=== PATIENT | female | born 1940 | race Caucasian/White ===

== ENCOUNTER 2016-12-10 20:23 | Emergency (ER) | payer OTHER, MEDICARE ==
[~2016-12-10] VITALS: Ht 152.4 cm; Wt 90.3 kg
[~2016-12-10 20:23] MED LIST: ACET325T96 PO; ALBU1AER9 INH; AMAN100C18 PO; BACL10TA PO; CALCTAB13 PO; CARB25TA12 PO; CARB50TA3 PO; CLOP1TAB15 PO; DOCU100C31 PO; EFFSR/75 PO; ESTR10TA PV; GABA1CAP5 PO; GUAI400T44 PO; IMD/2 PO; INSUINJ12 SQ; INSUINJ14 SQ; LATA0.009 OPB; MULT-190 PO; NITR0.4S UT; PANT40TA PO; POLY335019 PO; POLY99.02 OP; RASA1TAB PO; SALI1SPR3 NAE; SIMV20TA2 PO; SNG10 PO; TIOTCAP INH; ULT/50 PO
[2016-12-10 20:31] VITALS: TEMP 36.9; Ht 152.4 cm; Wt 90.3 kg
[2016-12-10 20:48] LABS: BASO % 0.3 %; BASO ABS # 0.03 K/uL (0-0.2); COMPLETE YES; EOS % 4.6 %; HEMATOCRIT 38.1 % (37-47); IG% 0.2 %; LYMPH % 21.5 %; LYMPH ABS # 2.04 K/uL (1.2-3.4); MEAN CELL VOLUME 87.2 fL (80-100); MEAN CORPUSCULAR HEMOGLOBIN 29.3 pg (25-34); MEAN CORPUSCULAR HGB CONC 33.6 g/dl (32-36); MEAN PLATELET VOLUME 10.6 fL (7.4-10.4); MONO % 9.1 %; NEUT % 64.3 %; PLATELET COUNT 225 K/uL (130-400); RED BLOOD COUNT 4.37 M/uL (4.2-5.4)
[2016-12-10 20:57] LABS: CREATININE 1.1 mg/dl (0.60-1.20); POTASSIUM 4.3 mmol/L (3.5-5.1)
[2016-12-10 21:00] LABS: CALCIUM 9.6 mg/dl (8.5-10.1)
[2016-12-10] MEDS ORDERED: SODIUM CHLORIDE 0.9% 1000ML 1,000 ML IV STA (21:20)
[2016-12-10] MEDS ORDERED: SODIUM CHLORIDE 0.9% 1000ML 250 ML IV STA (21:20)
[2016-12-10] MEDS ORDERED: LIDOCAINE HCL 2% VISC SOLN 20 ML UDC MT STA (21:20)
[2016-12-10] MEDS ORDERED: ALUMINUM/MAGNESIUM SUSP 30 ML UDC PO STA (21:20)
--- NOTE | 2016-12-10 21:22 | EMERGENCY ROOM VISIT NOTE ---
History Report prepared by Luis A: Keegan Barrios Under the Supervision of: Dr. Hal Porras M.D. First contact with patient: 21:14 Chief Complaint: ABDOMINAL PAIN Stated Complaint: AB PAIN Nursing Triage Summary: Vomiting and abdominal pain. History of Present Illness The patient is a 76 year old female who presents to the Emergency Room with complaints of the gastric pain has been going on for several months. She had episode of vomiting today that had some slight blood-tinged that started occurring today. The patient had three episodes. She blames her epigastric pain on the fact that she is taking aspirin which she can't take because it upsets her stomach and she did not know she was taking it. She also noticed darker stools today. The patient has had abdominal pain for the past two months , which was worse today. The patient does have a headache. She denies any fevers. She has had chest pain and shortness of breath for the past several months, which is better when she is wearing oxygen at night. The patient has a history of Parkinson's. No for no fall or trauma. Source of History: patient Onset: today Position: other (GI) Quality: other (hematemesis) Timing: other (three episodes) Associated Symptoms: + abdominal pain, + headache, + melena, No fevers Review of Systems See HPI for pertinent positives & negatives. A total of 10 systems reviewed and were otherwise negative. Past Medical & Surgical Medical Problems: (1) Srivastava's esophagus (2) Cerebrovascular disease (3) Coronary artery disease (4) Depression (5) Diabetes mellitus type 2 (6) Diabetic neuropathy (7) Gastroesophageal reflux disease (8) Glaucoma (9) Hyperlipidemia (10) Parkinson's disease Surgical Problems: (1) History of total knee arthroplasty (2) History of total knee arthroplasty (3) S/P appendectomy (4) S/P cholecystectomy (5) S/P hysterectomy (6) S/P tubal ligation Old medical records were reviewed. Nurse's notes were reviewed and I agree with. Family History Diabetes mellitus Gallbladder disease Heart disease Hypertension Kidney disease Kidney stones Lung disease Seizures Social History Smoking Status: Never Smoker Alcohol Use: none Drug Use: none Marital Status: single, Housing Status: assisted living Occupation Status: retired Current/Historical Medications Scheduled Amantadine Hcl (Amantadine Hcl), 100 MG PO BID Artificial Tears (Artificial Tears), 1 DROPS OP QID Aspirin (Aspirin Ec), 81 MG PO DAILY Calcium Carbonate-Cholecalcife (Oyster Shell Calcium Plus 500-200 mg-Unit), 1 TAB PO BID Carbidopa/Levodopa (Sinemet 25MG/100MG), 1.5 TABLET PO TID Cetirizine (Zyrtec), 10 MG PO DAILY Cholecalciferol (Vitamin D3), 50,000 UNITS PO WK Clopidogrel (Plavix), 75 MG PO QAM Docusate Sodium (Docusate Sodium), 100 MG PO BID Duloxetine Hcl (Cymbalta), 60 MG PO BID Estradiol Vaginal (Vagifem), 1 TAB PV 2XWK Fluticasone Propionate (Nasal) (Flonase Allergy Relief), 2 SPRAYS JEROMY DAILY Gabapentin (Neurontin), 600 MG PO BID Insulin Aspart Penfill (Novolog Penfill), UNITS SQ QID Insulin Detemir (Levemir), 45 UNITS SQ QAM Insulin Detemir (Levemir), 15 UNITS SQ HS Latanoprost 0.005% Oph (Xalatan 0.005% Oph), 1 DROP OPB HS Lisinopril (Zestril), 5 MG PO DAILY Melatonin (Kp Melatonin), 3 MG PO HS Midodrine Hcl (Midodrine Hcl), 2.5 MG PO BID Montelukast Sod (Montelukast Sodium), 10 MG PO HS Multiple Vitamin (Multi Vitamin), 1 TAB PO TIDM Ocuvite Preservision (Ocuvite Preservision), 1 TAB PO BID Pantoprazole (Protonix), 40 MG PO QAM Rasagiline Mesylate (Azilect), 1 MG PO DAILY Saccharomyces Boulardii (Florastor), 250 MG PO BID Saline (Saline Nasal [place]), 1 SPRAY JEROMY BID Simvastatin (Zocor), 20 MG PO QPM Tiotropium Peacham (Spiriva Handihaler), 1 CAP INH DAILY Venlafaxine HCl (Venlafaxine HCl ER), 75 MG PO QAM Scheduled PRN Acetaminophen Tab (Tylenol), 650 MG PO Q6H PRN for Pain or Fever Albuterol Hfa (Ventolin Hfa), 2 PUFFS INH Q6H PRN for SOB/Wheezing Clonazepam (Klonopin), 0.5 MG PO TID PRN for Anxiety Magnesium Hydroxide (Milk Of Magnesia), 30 ML PO QAM PRN for Constipation Nitroglycerin (Nitrostat), 0.4 MG UT UD PRN for Chest Pain Phenazopyridine HCl (Phenazopyridine HCl), 100 MG PO TID PRN for Pain Polyethylene Glycol 3350 (Miralax), 17 GM PO QAM PRN for Constipation Senna (Senokot), 17.2 MG PO Q12 PRN for Constipation Allergies Coded Allergies: Hymenoptera Venom Preparations (Verified Allergy, Intermediate, HIVES, ) Sulfamethoxazole w/Trimethoprim (Verified Allergy, Intermediate, RASH, ) Tetracyclines (Verified Allergy, Intermediate, HIVES, 10/18/15) Adhesives (Verified Allergy, Unknown, RASH, 10/18/15) Bee Pollen (Verified Allergy, Unknown, TACHYCARDIA, 10/18/15) Levofloxacin (Verified Adverse Reaction, Mild, DIARRHEA, 10/18/15) Physical Exam Vital Signs Date Time Temp Pulse Resp B/P Pulse Ox O2 Delivery O2 Flow Rate FiO2 12/10/16 23:59 69 18 156/73 96 12/10/16 22:14 74 18 153/71 99 Room Air 12/10/16 20:31 36.9 90 16 153/80 97 Room Air Physical Exam General: Non ill appearing older female in no acute distress, breathing comfortably on room air. Normal speech HEENT: Normal cephalic atraumatic. Pupils are equal round and reactive to light. Extraocular movements are intact. Oropharynx is pink with moist mucous membranes. No swelling of the mouth lips or tongue. Neck: Supple with a midline trachea. No meningeal signs or stiffness, no JVD or bruits. No Stridor. Chest: Clear to auscultation bilaterally. No wheezes or rhonchi. No increased work of breathing. Heart: regular rate and rhythm. Abdomen: Soft, mildly tender in the epigastric area, nondistended without rebound guarding or rigidity. Extremities: No cyanosis clubbing or edema. No calf tenderness or assymetry Spine/Back. Non tender to palpation. No CVA tenderness Skin: Good turgor without rashes. Neurologic exam: Cranial nerves two through 12 are intact. Motor and sensation are intact and symmetrical throughout. Rectal: Brown stool guaiac negative. 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 Medical Decision & Procedures ER Provider Diagnostic Interpretation: Radiology results as stated below per my review and radiologist interpretation: CHEST ONE VIEW PORTABLE CLINICAL HISTORY: Atypical chest pain COMPARISON STUDY: No previous studies for comparison. FINDINGS: The cardiac and mediastinal contours are normal. There is no evidence of focal pulmonary consolidation. There is no evidence of failure. No pleural effusions are visualized.[ IMPRESSION: No active disease in the chest. Electronically signed by: Kevin Fleming M.D. 12/10/2016 9:56 PM Dictated Date/Time: 12/10/2016 9:55 PM Laboratory Results 12/10/16 20:30 Red Blood Count 4.37, Mean Corpuscular Volume 87.2, Mean Corpuscular Hemoglobin 29.3, Mean Corpuscular Hemoglobin Concent 33.6, Mean Platelet Volume 10.6, Neutrophils (%) (Auto) 64.3, Lymphocytes (%) (Auto) 21.5, Monocytes (%) (Auto) 9.1, Eosinophils (%) (Auto) 4.6, Basophils (%) (Auto) 0.3, Neutrophils # (Auto) 6.11, Lymphocytes # (Auto) 2.04, Monocytes # (Auto) 0.86, Eosinophils # (Auto) 0.44, Basophils # (Auto) 0.03 12/10/16 20:30 Test 12/10/16 20:30 12/10/16 21:31 White Blood Count 9.50 K/uL (4.8-10.8) Red Blood Count 4.37 M/uL (4.2-5.4) Hemoglobin 12.8 g/dL (12.0-16.0) Hematocrit 38.1 % (37-47) Mean Corpuscular Volume 87.2 fL (80-100) Mean Corpuscular Hemoglobin 29.3 pg (25-34) Mean Corpuscular Hemoglobin Concent 33.6 g/dl (32-36) Platelet Count 225 K/uL (130-400) Mean Platelet Volume 10.6 fL (7.4-10.4) Neutrophils (%) (Auto) 64.3 % Lymphocytes (%) (Auto) 21.5 % Monocytes (%) (Auto) 9.1 % Eosinophils (%) (Auto) 4.6 % Basophils (%) (Auto) 0.3 % Neutrophils # (Auto) 6.11 K/uL (1.4-6.5) Lymphocytes # (Auto) 2.04 K/uL (1.2-3.4) Monocytes # (Auto) 0.86 K/uL (0.11-0.59) Eosinophils # (Auto) 0.44 K/uL (0-0.5) Basophils # (Auto) 0.03 K/uL (0-0.2) RDW Standard Deviation 44.1 fL (36.4-46.3) RDW Coefficient of Variation 13.8 % (11.5-14.5) Immature Granulocyte % (Auto) 0.2 % Immature Granulocyte # (Auto) 0.02 K/uL (0.00-0.02) Prothrombin Time 10.0 SECONDS (9.0-12.0) Prothromb Time International Ratio 0.9 (0.9-1.1) Activated Partial Thromboplast Time 25.9 SECONDS (21.0-31.0) Partial Thromboplastin Ratio 1.0 Anion Gap 8.0 mmol/L (3-11) Est Creatinine Clear Calc Drug Dose 44.2 ml/min Estimated GFR () 56.9 Estimated GFR (Non- 49.1 BUN/Creatinine Ratio 20.0 (10-20) Calcium Level 9.6 mg/dl (8.5-10.1) Total Bilirubin 0.3 mg/dl (0.2-1) Direct Bilirubin 0.1 mg/dl (0-0.2) Aspartate Amino Transf (AST/SGOT) 19 U/L (15-37) Alanine Aminotransferase (ALT/SGPT) 14 U/L (12-78) Alkaline Phosphatase 97 U/L (45-117) Total Protein 7.1 gm/dl (6.4-8.2) Albumin 3.6 gm/dl (3.4-5.0) Globulin 3.5 gm/dl (2.5-4.0) Albumin/Globulin Ratio 1.0 (0.9-2) Lipase 132 U/L (73-393) Bedside Troponin I 0.000 ng/ml (0-0.045) Laboratory studies as stated above per my review. Medications Administered Medications (Trade) Dose Ordered Sig/Vivek Route Start Time Stop Time Status Last Admin Dose Admin Sodium Chloride 250 ml @ 999 mls/hr Q16M STAT IV 12/10/16 21:20 12/10/16 21:35 DC 12/10/16 21:44 999 MLS/HR Sodium Chloride (Nss 1000ml) 1,000 ml @ 100 mls/hr Q10H STAT IV 12/10/16 21:20 12/11/16 07:19 12/10/16 21:45 100 MLS/HR Al Hydroxide/Mg Hydroxide (Maalox Susp) 30 ml NOW STAT PO 12/10/16 21:20 12/10/16 21:23 DC 12/10/16 21:43 30 ML Lidocaine HCl (Viscous Lidocaine 2% Soln) 10 ml NOW STAT MT 12/10/16 21:20 12/10/16 21:23 DC 12/10/16 21:43 10 ML ECG Indication: abdominal pain Rate (beats per minute): 72 Rhythm: normal sinus Findings: no acute ischemic change, left axis deviation, no ectopy, other (LVH) Comparison ECG Date: 04 June 2016 Change: no significant change ED Course 2114: Past medical records reviewed. The patient was evaluated in room B2, and a complete history and physical examination were performed. 2119: Lidocaine Hcl 10 ml MT, Maalox 30 ml PO, NSS 1000 ml @ 100 mls/hr, NSS 250 ml @ 999 m;s/hr. 2199: Rectal examination performed. 2344: Reassessed the patient. Discussed the discharge instructions with her. She verbalized understanding. The patient is ready for discharge. Medical Decision Differential diagnosis includes cardiac disease, GI bleed, gastritis, electrolyte or metabolic abnormality. This patient comes in as described above. She has several different complaints she's been some chronic epigastric pain as well as chest pain shortness of breath she had a couple episodes of vomiting which may have been slightly blood- tinged today. She has been hemolytically stable. Multiple blood testing was obtained. Hemoglobin is normal and unchanged for her baseline. I did a rectal exam and she has brown stool which is guaiac positive. She's had no evidence of significant acute GI bleed at this point. EKG does not suggest acute coronary syndrome or arrhythmia. Chest x-ray is unremarkable. She's had nothing to suggest liver, gallbladder, or pancreas disease. She may have more of a gastritis. She says her stomach has been irritated with aspirin.. I told her ensure she holds the aspirin it looks like she also takes Protonix. She did receive a GI cocktail and his feeling better. I told make sure that she continues the Protonix and she may want to also hold her Plavix for the next 2 days over the weekend until she gets rechecked by her regular doctor on Monday. She should return if increasing pain, worsening of symptoms, fever chills, any new problems or concerns. She was happy with plan and discharged to home. Impression Primary Impression: Epigastric abdominal pain Additional Impression: Peptic ulcer disease Scribe Attestation The scribe's documentation has been prepared under my direction and personally reviewed by me in its entirety. I confirm that the note above accurately reflects all work, treatment, procedures, and medical decision making performed by me. Departure Information Dispostion Home / Self-Care Referrals John Lopez (PCP) Forms HOME CARE DOCUMENTATION FORM, IMPORTANT VISIT INFORMATION Patient Instructions My [facility] Additional Instructions Rest. Ensure urine not taking aspirin. Hold your Plavix for the next 2 days and follow-up with your doctor on Monday for recheck Make sure you are taking your Protonix stomach medicine Return if: Worsening of symptoms, fever or chills, increasing pain, any further vomiting of blood. Blood in the stool or black colors, any new problems or concerns. Problem Qualifiers
--- NOTE | 2016-12-10 21:58 | DIAGNOSTIC IMAGING REPORT ---
CHEST ONE VIEW PORTABLE CLINICAL HISTORY: Atypical chest pain COMPARISON STUDY: No previous studies for comparison. FINDINGS: The cardiac and mediastinal contours are normal. There is no evidence of focal pulmonary consolidation. There is no evidence of failure. No pleural effusions are visualized.[ IMPRESSION: No active disease in the chest. Electronically signed by: Kevin Fleming M.D. 12/10/2016 9:56 PM Dictated Date/Time: 12/10/2016 9:55 PM
[2016-12-10 22:16] LABS: INR 0.9 (0.9-1.1)
[2016-12-10] MEDS ORDERED: ASPI81TA28 PO (22:18)
[2016-12-10] MEDS ORDERED: DULO60CA44 PO (22:23)
[2016-12-10] MEDS ORDERED: FLUT0.15 NAE (22:24)
[2016-12-10] MEDS ORDERED: GABA-113 PO (22:25)
[2016-12-10] MEDS ORDERED: LISI-729 PO (22:29)
[2016-12-10] MEDS ORDERED: MELA1TAB5 PO (22:30)
[2016-12-10] MEDS ORDERED: MIDO2.5T PO (22:31)
[2016-12-10] MEDS ORDERED: MULT-1027 PO (22:34)
[2016-12-10] MEDS ORDERED: MULT-190 PO (22:37)
[2016-12-10] MEDS ORDERED: CALC-453 PO (22:38)
[2016-12-10] MEDS ORDERED: CETI10TA84 PO (22:44)
[2016-12-10] MEDS ORDERED: SACC250C PO (22:46)
[2016-12-10] MEDS ORDERED: ESTR10TA PV (22:48)
[2016-12-10] MEDS ORDERED: CHOL1TAB63 PO (22:51)
[2016-12-10] MEDS ORDERED: CLON0.5T3 PO (22:54)
[2016-12-10] MEDS ORDERED: MOML PO (22:56)
[2016-12-10] MEDS ORDERED: PHEN-1042 PO (22:58)
[2016-12-10] MEDS ORDERED: SENN-61 PO (23:00)
[2016-12-10] MEDS ORDERED: VNTHFA/IN INH (23:01)
[2016-12-10 23:59] VITALS: BP 156/73; PULSE 69; O2SAT 96
== END 2016-12-11 02:30 | disposition home or self-care (01) ==
LOC: EDBD 20:23 → C.EDB 20:24
DX: R10.13 Epigastric pain (principal); K27.4 Chronic or unspecified peptic ulcer, site unspecified, with hemorrhage; G20 Parkinson's disease; H40.9 Unspecified glaucoma; E78.5 Hyperlipidemia, unspecified; F32.9 Major depressive disorder, single episode, unspecified; E11.40 Type 2 diabetes mellitus with diabetic neuropathy, unspecified; K22.70 Barrett's esophagus without dysplasia; K21.9 Gastro-esophageal reflux disease without esophagitis; I25.10 Atherosclerotic heart disease of native coronary artery without angina pectoris; Z96.659 Presence of unspecified artificial knee joint; Z90.49 Acquired absence of other specified parts of digestive tract; Z98.51 Tubal ligation status; Z90.710 Acquired absence of both cervix and uterus; Z90.89 Acquired absence of other organs; Z83.3 Family history of diabetes mellitus; Z82.49 Family history of ischemic heart disease and other diseases of the circulatory system; Z84.1 Family history of disorders of kidney and ureter; Z82.0 Family history of epilepsy and other diseases of the nervous system; Z79.82 Long term (current) use of aspirin; Z79.02 Long term (current) use of antithrombotics/antiplatelets; Z79.4 Long term (current) use of insulin; Z79.899 Other long term (current) drug therapy